=== PATIENT | male | born 1955 | race Caucasian/White ===

== ENCOUNTER 2020-11-02 07:09 | Day surgery (SDC) | payer BC ==
[2020-11-02] MEDS ORDERED: Fluorouracil 100 MG, Enoxaparin Sodium 25 MG, EPINEPHrine 0.3 MG in Ophthalmic Irrigati... IRR SCH (07:15)
[2020-11-02] MEDS ORDERED: Cyclopentolate 1% Ophth Drops 15 ML BOT ONE (08:02)
[2020-11-02] MEDS ORDERED: Phenylephrine 2.5% Ophth Soln 5 ML BOT ONE (08:03)
[2020-11-02] MEDS ORDERED: Fentanyl 100 MCG/2 ML VIAL ONE (08:11)
[2020-11-02] MEDS ORDERED: Midazolam HCl 2 mg/2 ml Vial ONE (08:11)
[2020-11-02] MEDS ORDERED: PROPOFOL 200 MG/20 ML VIAL ONE (09:33)
[2020-11-02] MEDS ORDERED: Lidocaine 1% PF 5 ML VIAL ONE (09:33)
[2020-11-02] MEDS ORDERED: Triamcinolone 40 MG/ML VIAL ONE (09:33)
[2020-11-02] MEDS ORDERED: Maxitrol 0.1% Opth Oint 3.5 GM TUBE ONE (09:33)
[2020-11-02] MEDS ORDERED: Bupivacaine PF 0.75% SDV 10 ML ONE (09:33)
[2020-11-02] MEDS ORDERED: Lidocaine 4% PF 5 ML AMP ONE (09:33)
[2020-11-02] MEDS ORDERED: CEFAZOLIN 1 GM VIAL ONE (09:33)
== END 2020-11-02 12:14 | disposition home or self-care (01) ==
LOC: SDC 07:09
PROVIDERS: ATTEND Ophthalmology Retina Specialist
PROC: 08T43ZZ Resection of Right Vitreous, Percutaneous Approach (ICD-10-PCS; principal; 2020-11-02)
DX: H33.011 Retinal detachment with single break, right eye (principal); Z79.01 Long term (current) use of anticoagulants; Z79.899 Other long term (current) drug therapy
CPT/HCPCS: 67025; J0171; J0690; J1650; J2250; J2704; J3010; J3301; J3490; J9190